=== PATIENT | female | born 1955 ===

== ENCOUNTER 2016-10-28 10:37 | Emergency (ER) | payer SELFPAY ==
[2016-10-28 10:49] VITALS: BMI 33.3
--- NOTE | 2016-10-28 10:53 | C.PDOC ---
History Of Present Illness 61 y/o female pmhx HTN on medication presents to the ED with complaints of right knee injury sustained [employer]. Pt was walking when she felt her knee give and fell onto the knee. Pt reports history of sciatica which she was treated with diclofenac injection and a cream, denies sciatica symptoms now. Denies any other injury. Denies dizziness, lightheadedness or any other complaints. Time Seen by Provider: 10/28/16 10:57 Chief Complaint (Nursing): Lower Extremity Problem/Injury History Per: Patient History/Exam Limitations: no limitations Onset/Duration Of Symptoms: Mins Current Symptoms Are (Timing): Still Present Severity: Moderate Recent travel outside of the [place]: No - Knee Description Of Injury: Fell Past Medical History Reviewed: Historical Data, Nursing Documentation, Vital Signs Vital Signs: Last Vital Signs Temp 98.2 F 10/28/16 10:54 Pulse 75 10/28/16 11:49 Resp 18 10/28/16 11:49 BP 124/75 10/28/16 11:49 Pulse Ox 98 10/28/16 11:49 - Medical History PMH: HTN Family History: States: Unknown Family Hx - Social History Hx Alcohol Use: No Hx Substance Use: No - Immunization History Hx Tetanus Toxoid Vaccination: No Hx Influenza Vaccination: No Hx Pneumococcal Vaccination: No Review Of Systems Except As Marked, All Systems Reviewed And Found Negative. Cardiovascular: Negative for: Light Headedness Musculoskeletal: Positive for: Other (right knee pain) Neurological: Negative for: Weakness, Numbness, Dizziness Physical Exam - Physical Exam Appears: Non-toxic, No Acute Distress Skin: Warm, Dry, No Rash Head: Atraumatic, Normacephalic Back: Normal Inspection, No Vertebral Tenderness, No Paraspinal Tenderness Extremity: Normal ROM, No Calf Tenderness, Capillary Refill (<2 seconds), No Deformity, Other (ecchymosis to right lower knee) Neurological/Psych: Oriented x3, Normal Speech, Normal Motor, Normal Sensation Medical Decision Making Medical Decision Making: DDx: Knee Strain vs Meniscal tear vs Fracture Plan: * XR right patella, tibula/fibula * Tylenol XRay was negative. Patient was placed in a knee immobilzer and given crutches with instructions on use. She was instructed to follow up with her PMD in 1- 2days and Orthopedics as well. She feels comfortable with plan for discharge. Disposition Counseled Patient/Family Regarding: Studies Performed, Diagnosis, Need For Followup, Rx Given - Disposition Referrals: Pedro Granados MD [Primary Care Provider] - Rodrigo Ley MD [Staff Provider] - Disposition: HOME/ ROUTINE Disposition Time: 11:50 Condition: GOOD Additional Instructions: Mr Yates, thank you for letting us take care of you today. Your provider was Dr. Grewal. You were treated for Knee Strain. The emergency medical care you received today was directed at your acute symptoms. If you were prescribed any medication, please fill it and take as directed. It may take several days for your symptoms to resolve. Return to the Emergency Department if your symptoms worsen, do not improve, or if you have any other problems. Please contact your doctor or call one of the physicians/clinics you have been referred to that are listed on the Patient Visit Information form that is included in your discharge packet. Bring any paperwork you were given at discharge with you along with any medications you are taking to your follow up visit. Our treatment cannot replace ongoing medical care by a primary care provider (PCP) outside of the emergency department. Thank you for allowing the [facility] team to be part of your care today. If you had an X-Ray or CT scan: A Radiologist will review the ED reading if any change in treatment is needed we will contact you. If you had a blood, urine, or wound culture: It will take several days for the results, if any change in treatment is needed we will contact you. If you had an STI test: It will take 48 hours for the results. Please call after 1 week if you have not heard back. Prescriptions: Ibuprofen [Motrin] 600 mg PO Q6 PRN #30 tab PRN Reason: Pain, Moderate (4-7) Instructions: Knee Pain (ED), Knee Immobilizer (ED) Forms: Gen Discharge Inst Malawian Print Language: DIVEHI - Clinical Impression Clinical Impression: Knee strain - Scribe Statement The provider has reviewed the documentation as recorded by the Ines Mendez Provider Attestation: All medical record entries made by the Hernandezibtony were at my direction and personally dictated by me. I have reviewed the chart and agree that the record accurately reflects my personal performance of the history, physical exam, medical decision making, and the department course for this patient. I have also personally directed, reviewed, and agree with the discharge instructions and disposition.
[2016-10-28 10:58] VITALS: RESP 18; TEMP 98.2; O2SAT 98
[2016-10-28 11:50] VITALS: BP 124/75; PULSE 75
--- NOTE | 2016-10-28 11:58 | RAD ---
Right knee three views History: Injury. Fall. Comparison: None available. Findings: Mild medial and moderate patellofemoral compartment joint space narrowing. No significant suprapatellar joint effusion. No evidence of acute displaced fracture or dislocation. Impression: Degenerative changes. If pain persists, consider MRI.
--- NOTE | 2016-10-28 13:43 | RAD ---
Right tibia and fibula four views History: Injury. Comparison: None available. Findings: Mild medial and moderate patellofemoral compartment joint space narrowing. Small suprapatellar joint effusion. No evidence of acute displaced fracture or dislocation. Impression: Negative acute. If pain persists, consider MRI.
== END 2016-10-28 11:51 | disposition home or self-care (01) ==
LOC: C.ER 10:37 → SUPCPDRO 10:37 → C.ER 11:51
DX: S86.911A Strain of unspecified muscle(s) and tendon(s) at lower leg level, right leg, initial encounter (principal); W18.39XA Other fall on same level, initial encounter; Y93.89 Activity, other specified; Y92.89 Other specified places as the place of occurrence of the external cause